=== PATIENT | male | born 1970 | race Caucasian/White ===

== ENCOUNTER 2017-10-05 08:19 | Emergency (ER) | payer SELFPAY | END 2017-10-05 08:55 | disposition home or self-care (01) | LOC: ERS 08:19 | DX: F10.10 Alcohol abuse, uncomplicated (principal); F32.9 Major depressive disorder, single episode, unspecified; F41.9 Anxiety disorder, unspecified; F17.210 Nicotine dependence, cigarettes, uncomplicated; Z79.899 Other long term (current) drug therapy | CPT/HCPCS: 99283 ==

== ENCOUNTER 2022-11-18 11:53 | Inpatient (IN) | payer SELFPAY ==
[2022-11-18] MEDS ORDERED: Ondansetron PF 4 MG/2 ML Vial ONE (13:45)
[2022-11-18] MEDS ORDERED: Morphine 4 MG/ML VIAL ONE ×2 (13:45→16:17)
[2022-11-18] MEDS ORDERED: CEFAZOLIN 1 GM VIAL ONE (15:47)
[2022-11-18 16:23] LABS: #Basophils 0.1 thou/uL (0.0-0.2); #Eosinphils 0.1 thou/uL (0.0-0.7); #Lymphocytes 2.8 thou/uL (1.20-3.40); #Monocytes 1.1 thou/uL (0.11-0.59); #Neutrophils 5.3 thou/uL (1.40-6.50); %Basophils 0.7 % (0.0-1.0); %Eosinophils 1.1 % (0.0-10.0); %Lymphocytes 29.8 % (21.0-51.0); %Monocytes 11.7 % (0.0-10.0); %Neutrophils 56.7 % (42.0-75.0); Hemoglobin 14.6 g/dL (14.0-18.0); Mean Corpuscular HGB CONC 35.6 g/dL (32.0-36.0); Mean Corpuscular Hemoglobin 36.7 pg (27.0-31.0); Mean Platelet Volume 7.8 fL (7.4-10.4); PTT 28.6 sec (22.9-36.1); Platelet Count 177 10x3/uL (130-400); Prothrombin Time 13.5 sec (12.0-14.7); RBC Distribution Width 11.9 % (11.5-14.5); Red Blood Cell (RBC) Count 3.97 mill/uL (4.70-6.10); White Blood Cell (WBC) Count 9.3 10x3/uL (4.8-10.8)
[2022-11-18 16:26] LABS: ALT (SGPT) 32 U/L (8-55); AST (SGOT) 37 U/L (5-34); Albumin 3.8 g/dL (3.5-5.0); Alcohol 42 mg/dL (Less than 10); Alkaline Phosphatase 71 U/L (40-110); Anion Gap 15 mmol/L (10-20); BUN (Urea Nitrogen) 6 mg/dL (8.9-20.6); Bilirubin, Total 0.8 mg/dL (0.2-1.2); Calc. Creatinine Clearance 0 mL/min (70-130); Calcium 8.7 mg/dL (7.8-10.44); Carbon Dioxide 21 mmol/L (22-29); Chloride 105 mmol/L (98-107); Estimated GFR 105; Glucose 79 mg/dL (70-105); Phosphorus 2.4 mg/dL (2.3-4.7); Potassium 3.4 mmol/L (3.5-5.1); Protein, Total 6.8 g/dL (6.0-8.3); Sodium 138 mmol/L (136-145)
[2022-11-18 16:29] LABS: Magnesium 1.6 mg/dL (1.6-2.6)
[2022-11-18] MEDS ORDERED: Dextrose 50% Abboject 50 ML SYRINGE SLOW IVP PRN (16:34)
[2022-11-18] MEDS ORDERED: TETANUS, DIPHTHERIA TOX,ADULT (TDVAX) 0.5 ML VIAL IM ONE (16:34)
[2022-11-18] MEDS ORDERED: hydrALAZINE 20 MG/ML VIAL SLOW IVP PRN (16:34)
[2022-11-18] MEDS ORDERED: Dextrose 5% in Water 1,000 ML IV PRN (16:34)
[2022-11-18] MEDS ORDERED: Ondansetron PF 4 MG/2 ML Vial IVP PRN (16:34)
[2022-11-18] MEDS ORDERED: Cyclobenzaprine 10 MG TAB PO PRN (16:40)
[2022-11-18] MEDS ORDERED: Acetaminophen/Codeine 30-300mg Tablet PO PRN (16:40)
[2022-11-18] MEDS ORDERED: Sodium Chloride 0.9% 1,000 ML IV SCH (16:45)
[2022-11-18] MEDS ORDERED: Magnesium 2 GM/50 ML(in water) 2 GM in Premix Bag 1 BAG IVPB SCH (18:45)
[2022-11-18] MEDS ORDERED: Potassium Phosphate 30 MMOL in Sodium Chloride 0.9% 250 ML 250 ML IVPB SCH (18:45)
[2022-11-18] MEDS: Senokot S 8.6-50 MG TAB PO SCH (20:53)
[2022-11-18] MEDS: Acetaminophen 500 MG TAB PO SCH (20:54)
[2022-11-18] MEDS: Morphine 4 MG/ML VIAL SLOW IVP PRN (20:54)
[2022-11-18] MEDS: Gabapentin 300 MG CAP PO SCH (20:55)
[2022-11-18] MEDS: Famotidine 20 MG TAB PO SCH (20:55)
[2022-11-18] MEDS: Oxazepam 10 MG CAP PO SCH (21:01)
[2022-11-18 23:48] VITALS: BMI 24.4
[2022-11-18 23:53] LABS: Amphetamine Not Detected (NotDetected); Barbiturates Screen Not Detected (NotDetected); Benzodiazepine Screen Detected (NotDetected); Cocaine Metabolite Screen Not Detected (NotDetected); Methadone Not Detected (NotDetected); Methamphetamine Not Detected (NotDetected); Opiate Screen Detected (NotDetected); Oxycodone Screen Not Detected (NotDetected); Phencyclidine (PCP) Not Detected (NotDetected); THC/Cannabinoid Screen Not Detected (NotDetected); Tricyclic Screen Not Detected (NotDetected)
[2022-11-19] MEDS: CEFAZOLIN 2 GM in Sodium Chloride 0.9% 100 ML IVPB SCH ×3 (00:44→20:50)
[2022-11-19] MEDS: Nicotine 14 MG PATCH TD SCH ×2 (00:44→22:28)
[2022-11-19] MEDS: Acetaminophen 500 MG TAB PO SCH ×4 (02:29→20:54)
[2022-11-19] MEDS: Morphine 4 MG/ML VIAL SLOW IVP PRN (02:29)
[2022-11-19] MEDS: Oxazepam 10 MG CAP PO SCH ×3 (05:20→22:28)
[2022-11-19 07:05] LABS: #Basophils 0.1 thou/uL (0.0-0.2); #Eosinphils 0.1 thou/uL (0.0-0.7); #Lymphocytes 2.3 thou/uL (1.20-3.40); #Neutrophils 4.6 thou/uL (1.40-6.50); %Basophils 0.7 % (0.0-1.0); %Eosinophils 1.6 % (0.0-10.0); %Lymphocytes 28.2 % (21.0-51.0); %Monocytes 12.3 % (0.0-10.0); %Neutrophils 57.2 % (42.0-75.0); Hemoglobin 13.4 g/dL (14.0-18.0); Mean Corpuscular HGB CONC 36.4 g/dL (32.0-36.0); Mean Corpuscular Hemoglobin 37.8 pg (27.0-31.0); Platelet Count 158 10x3/uL (130-400); RBC Distribution Width 11.7 % (11.5-14.5); Red Blood Cell (RBC) Count 3.54 mill/uL (4.70-6.10)
[2022-11-19] MEDS ORDERED: CEFAZOLIN 2 GM in Sodium Chloride 0.9% 100 ML IVPB SCH ×2 (07:15→16:00)
[2022-11-19 07:54] LABS: Anion Gap 14 mmol/L (10-20); BUN (Urea Nitrogen) 7 mg/dL (8.9-20.6); Calc. Creatinine Clearance 117 mL/min (70-130); Calcium 7.9 mg/dL (7.8-10.44); Carbon Dioxide 21 mmol/L (22-29); Chloride 105 mmol/L (98-107); Estimated GFR 106; Glucose 80 mg/dL (70-105); Magnesium 1.9 mg/dL (1.6-2.6); Phosphorus 3.7 mg/dL (2.3-4.7); Potassium 3.7 mmol/L (3.5-5.1); Sodium 136 mmol/L (136-145)
[2022-11-19] MEDS: Famotidine 20 MG TAB PO SCH ×2 (08:32→20:49)
[2022-11-19] MEDS: Senokot S 8.6-50 MG TAB PO SCH ×2 (08:32→20:49)
[2022-11-19] MEDS: Gabapentin 300 MG CAP PO SCH ×3 (08:33→20:49)
[2022-11-19] MEDS: Folic Acid 1 MG TAB PO SCH (08:33)
[2022-11-19] MEDS: Thiamine 100 MG TAB PO SCH (08:33)
[2022-11-19] MEDS: Multivitamin W/ Minerals 1 TAB PO SCH (08:33)
[2022-11-19] MEDS: Acetaminophen/Codeine 30-300mg Tablet PO PRN (08:37)
[2022-11-19] MEDS: Polyethylene Glycol 3350 17 GM Packet PO SCH (08:51)
[2022-11-19] MEDS ORDERED: FENTANYL 50 MCG/ML 1 ML VIAL ONE ×2 (10:48→11:58)
[2022-11-19] MEDS ORDERED: Bupivacaine PF 0.5% 30 ML VIAL ONE (10:48)
[2022-11-19] MEDS ORDERED: Midazolam HCl 2 mg/2 ml Vial ONE (10:48)
[2022-11-19] MEDS ORDERED: Ondansetron PF 4 MG/2 ML Vial ONE (12:23)
[2022-11-19] MEDS ORDERED: Lidocaine 1% PF 5 ML VIAL ONE (12:23)
[2022-11-19] MEDS ORDERED: Dexamethasone 20 MG/5 ML VIAL ONE (12:23)
[2022-11-19] MEDS ORDERED: Succinylcholine Chloride 100 MG/5 ML SYRINGE FS ONE (12:23)
[2022-11-19] MEDS ORDERED: Bupivacaine HCl 0.5%/Epinephrine 1:200,000/PF 30 ml Vial ONE (12:23)
[2022-11-19] MEDS ORDERED: PROPOFOL 200 MG/20 ML VIAL ONE (12:23)
[2022-11-19] MEDS ORDERED: Ondansetron HCl/PF 4 MG/2 ML Vial IVP PRN (14:06)
[2022-11-19] MEDS ORDERED: Promethazine HCl 25 MG/ML VIAL IM PRN (14:06)
[2022-11-19] MEDS ORDERED: Escitalopram Oxalate 10 mg Tablet PO SCH (20:00)
[2022-11-19] MEDS ORDERED: clonazePAM 1 MG TAB PO SCH (20:00)
[2022-11-19] MEDS ORDERED: traZODone HCl 50 MG TAB PO SCH (21:00)
[2022-11-20] MEDS: Acetaminophen 500 MG TAB PO SCH ×3 (02:25→14:01)
[2022-11-20] MEDS: Acetaminophen/Codeine 30-300mg Tablet PO PRN ×2 (04:22→12:27)
[2022-11-20] MEDS: CEFAZOLIN 2 GM in Sodium Chloride 0.9% 100 ML IVPB SCH (04:22)
[2022-11-20] MEDS: Oxazepam 10 MG CAP PO SCH ×2 (06:17→15:10)
[2022-11-20 08:12] VITALS: TEMP 97.4
[2022-11-20] MEDS: Senokot S 8.6-50 MG TAB PO SCH (08:14)
[2022-11-20] MEDS: Thiamine 100 MG TAB PO SCH (08:14)
[2022-11-20] MEDS: Gabapentin 300 MG CAP PO SCH ×2 (08:15→15:10)
[2022-11-20] MEDS: Folic Acid 1 MG TAB PO SCH (08:15)
[2022-11-20] MEDS: Polyethylene Glycol 3350 17 GM Packet PO SCH (08:25)
[2022-11-20] MEDS ORDERED: Escitalopram Oxalate 10 mg Tablet PO SCH ×2 (09:00)
[2022-11-20] MEDS ORDERED: clonazePAM 1 MG TAB PO SCH ×2 (09:00)
[2022-11-20 11:40] VITALS: BP 118/71
[2022-11-20] MEDS: Multivitamin W/ Minerals 1 TAB PO SCH (12:30)
[2022-11-20] MEDS: Famotidine 20 MG TAB PO SCH (12:30)
[2022-11-20] MEDS ORDERED: traZODone HCl 50 MG TAB PO SCH (21:00)
== END 2022-11-20 15:30 | disposition home or self-care (01) | DRG 494 ==
LOC: ERS 11:53 → SJJU 16:23
PROVIDERS: ADMIT Surgery; ATTEND Surgery
PROC: 0QSG04Z Reposition Right Tibia with Internal Fixation Device, Open Approach (ICD-10-PCS; principal; 2022-11-19)
DX: S82.871A Displaced pilon fracture of right tibia, initial encounter for closed fracture (principal); E87.6 Hypokalemia; F41.9 Anxiety disorder, unspecified; F32.A Depression, unspecified; F43.10 Post-traumatic stress disorder, unspecified; F17.210 Nicotine dependence, cigarettes, uncomplicated; F10.129 Alcohol abuse with intoxication, unspecified; S50.811A Abrasion of right forearm, initial encounter; W14.XXXA Fall from tree, initial encounter; Z98.890 Other specified postprocedural states; Z79.899 Other long term (current) drug therapy; Z91.041 Radiographic dye allergy status; Y93.H2 Activity, gardening and landscaping
CPT/HCPCS: 29405; 36415; 71045; 80048; 80053; 80306; 80307; 83735; 84100; 85025; 85610; 85730; 96374; 96375; 96376; C1713; C1889; J0690; J1100; J2250; J2270; J2405; J2704; J3010; J3475; J3490; J7050; S0020

== ENCOUNTER 2022-11-28 14:54 | Inpatient (IN) | payer SELFPAY ==
[2022-11-28 16:20] LABS: #Basophils 0.1 thou/uL (0.0-0.2); #Eosinphils 0.3 thou/uL (0.0-0.7); #Lymphocytes 2.7 thou/uL (1.20-3.40); #Monocytes 0.8 thou/uL (0.11-0.59); #Neutrophils 2.9 thou/uL (1.40-6.50); %Basophils 1.2 % (0.0-1.0); %Eosinophils 4.5 % (0.0-10.0); %Lymphocytes 39.8 % (21.0-51.0); %Monocytes 11.8 % (0.0-10.0); %Neutrophils 42.7 % (42.0-75.0); Hemoglobin 14.5 g/dL (14.0-18.0); Mean Corpuscular HGB CONC 35.9 g/dL (32.0-36.0); Mean Corpuscular Hemoglobin 37.2 pg (27.0-31.0); Mean Platelet Volume 6.5 fL (7.4-10.4); Platelet Count 330 10x3/uL (130-400); RBC Distribution Width 11.7 % (11.5-14.5); Red Blood Cell (RBC) Count 3.89 mill/uL (4.70-6.10); White Blood Cell (WBC) Count 6.8 10x3/uL (4.8-10.8)
[2022-11-28 16:36] LABS: Anion Gap 14 mmol/L (10-20); BUN (Urea Nitrogen) 10 mg/dL (8.9-20.6); Calc. Creatinine Clearance 0 mL/min (70-130); Calcium 8.9 mg/dL (7.8-10.44); Carbon Dioxide 22 mmol/L (22-29); Chloride 105 mmol/L (98-107); Estimated GFR 69; Glucose 79 mg/dL (70-105); Potassium 4.1 mmol/L (3.5-5.1); Sodium 137 mmol/L (136-145)
[2022-11-28] MEDS ORDERED: cefTRIAXone (ROCEPHIN) 2 GM VIAL ONE (17:05)
[2022-11-28] MEDS ORDERED: Morphine 4 MG/ML VIAL ONE (17:05)
[2022-11-28] MEDS ORDERED: Cyclobenzaprine 10 MG TAB PO PRN (17:06)
[2022-11-28] MEDS ORDERED: Ipratropium/Albuterol 3 ML NEB NEB PRN (17:06)
[2022-11-28] MEDS ORDERED: Ondansetron PF 4 MG/2 ML Vial IVP PRN (17:06)
[2022-11-28] MEDS ORDERED: Ibuprofen 800 MG TAB PO PRN (18:57)
[2022-11-28] MEDS ORDERED: traZODone HCl 50 MG TAB PO SCH (21:00)
[2022-11-28] MEDS: metroNIDAZOLE 500 MG in Premix Bag 1 BAG IVPB SCH (22:06)
[2022-11-28] MEDS: Famotidine/PF 20 mg/2ml Vial SLOW IVP SCH (22:07)
[2022-11-28] MEDS: Sodium Chloride 0.9% 1,000 ML IV SCH (22:07)
[2022-11-28] MEDS: Senokot S 8.6-50 MG TAB PO SCH (22:07)
[2022-11-28] MEDS: Oxazepam 10 MG CAP PO SCH (22:08)
[2022-11-28] MEDS: Cyclobenzaprine 10 MG TAB PO PRN (22:08)
[2022-11-28] MEDS: Gabapentin 300 MG CAP PO SCH (22:08)
[2022-11-28] MEDS: traMADol HCl 50 MG TAB PO PRN (22:09)
[2022-11-28 23:55] VITALS: BMI 26.4
[2022-11-29] MEDS: Sodium Chloride 0.9% 1,000 ML IV SCH (01:35)
[2022-11-29] MEDS: Oxazepam 10 MG CAP PO SCH ×2 (05:26→13:45)
[2022-11-29] MEDS: metroNIDAZOLE 500 MG in Premix Bag 1 BAG IVPB SCH (05:26)
[2022-11-29] MEDS: traMADol HCl 50 MG TAB PO PRN (05:28)
[2022-11-29 05:41] LABS: #Basophils 0.1 thou/uL (0.0-0.2); #Eosinphils 0.3 thou/uL (0.0-0.7); #Monocytes 0.9 thou/uL (0.11-0.59); #Neutrophils 3.3 thou/uL (1.40-6.50); %Basophils 0.8 % (0.0-1.0); %Eosinophils 4.9 % (0.0-10.0); %Lymphocytes 30.7 % (21.0-51.0); %Monocytes 13.2 % (0.0-10.0); %Neutrophils 50.4 % (42.0-75.0); Hemoglobin 13.1 g/dL (14.0-18.0); Mean Corpuscular HGB CONC 34.7 g/dL (32.0-36.0); Mean Corpuscular Hemoglobin 36.2 pg (27.0-31.0); Mean Platelet Volume 6.4 fL (7.4-10.4); Platelet Count 284 10x3/uL (130-400); RBC Distribution Width 11.7 % (11.5-14.5); Red Blood Cell (RBC) Count 3.62 mill/uL (4.70-6.10); White Blood Cell (WBC) Count 6.5 10x3/uL (4.8-10.8)
[2022-11-29 05:52] LABS: PTT 28.3 sec (22.9-36.1); Prothrombin Time 13.4 sec (12.0-14.7)
[2022-11-29 06:05] LABS: Phosphorus 3.4 mg/dL (2.3-4.7)
[2022-11-29 06:06] LABS: Anion Gap 10 mmol/L (10-20); BUN (Urea Nitrogen) 12 mg/dL (8.9-20.6); Calc. Creatinine Clearance 93 mL/min (70-130); Calcium 8.3 mg/dL (7.8-10.44); Carbon Dioxide 22 mmol/L (22-29); Chloride 110 mmol/L (98-107); Estimated GFR 77; Glucose 90 mg/dL (70-105); Magnesium 2.2 mg/dL (1.6-2.6); Potassium 4.4 mmol/L (3.5-5.1); Sodium 138 mmol/L (136-145)
[2022-11-29 08:05] VITALS: TEMP 97.5
[2022-11-29] MEDS ORDERED: Escitalopram Oxalate 10 mg Tablet PO SCH (09:00)
[2022-11-29] MEDS ORDERED: Thiamine 100 MG TAB PO SCH (09:00)
[2022-11-29] MEDS ORDERED: Saccharomyces boulardii 250 MG CAP PO SCH (09:00)
[2022-11-29] MEDS ORDERED: Folic Acid 1 MG TAB PO SCH (09:00)
[2022-11-29] MEDS ORDERED: Polyethylene Glycol 3350 17 GM Packet PO SCH (09:00)
[2022-11-29] MEDS: Cyclobenzaprine 10 MG TAB PO PRN (09:01)
[2022-11-29] MEDS: Gabapentin 300 MG CAP PO SCH ×2 (09:01→15:25)
[2022-11-29] MEDS: Famotidine/PF 20 mg/2ml Vial SLOW IVP SCH (09:02)
[2022-11-29] MEDS: Senokot S 8.6-50 MG TAB PO SCH (09:08)
[2022-11-29] MEDS ORDERED: Acetaminophen/Codeine 30-300mg Tablet PO SCH (10:00)
[2022-11-29] MEDS ORDERED: Cephalexin 250 MG CAP PO SCH (12:00)
[2022-11-29 15:26] VITALS: BP 142/82
[2022-11-29] MEDS ORDERED: cefTRIAXone\\ROCEPHIN 2 GM in Sodium Chloride 0.9% 100 ML IVPB SCH (17:00)
== END 2022-11-29 15:10 | disposition home or self-care (01) | DRG 948 ==
LOC: ERS 14:54 → SJJU 17:10
PROVIDERS: ADMIT Surgery; ATTEND Surgery
DX: G89.18 Other acute postprocedural pain (principal); F41.9 Anxiety disorder, unspecified; F32.A Depression, unspecified; F17.210 Nicotine dependence, cigarettes, uncomplicated; F10.10 Alcohol abuse, uncomplicated; F43.10 Post-traumatic stress disorder, unspecified; S82.301D Unspecified fracture of lower end of right tibia, subsequent encounter for closed fracture with routine healing; W14.XXXD Fall from tree, subsequent encounter
CPT/HCPCS: 36415; 80048; 83605; 83735; 84100; 85025; 85610; 85652; 85730; 86140; 86850; 86900; 86901; J0696; J2270; J7050; S0028

== ENCOUNTER 2023-04-16 14:49 | Inpatient (IN) | payer SELFPAY ==
[2023-04-16 16:05] LABS: #Eosinphils 0.1 thou/uL (0.0-0.7); #Monocytes 0.9 thou/uL (0.11-0.59); #Neutrophils 6.8 thou/uL (1.40-6.50); %Basophils 0.4 % (0.0-1.0); %Eosinophils 0.9 % (0.0-10.0); %Lymphocytes 25.4 % (21.0-51.0); %Monocytes 8.5 % (0.0-10.0); %Neutrophils 64.2 % (42.0-75.0); Hematocrit 47.8 % (42.0-52.0); Hemoglobin 17.8 g/dL (14.0-18.0); Mean Corpuscular HGB CONC 37.2 g/dL (32.0-36.0); Mean Corpuscular Hemoglobin 36.2 pg (27.0-31.0); Mean Corpuscular Volume 97.2 fl (78.0-98.0); Platelet Count 158 10x3/uL (130-400); RBC Distribution Width 12.9 % (11.5-14.5); Red Blood Cell (RBC) Count 4.92 mill/uL (4.70-6.10); White Blood Cell (WBC) Count 10.5 10x3/uL (4.8-10.8)
[2023-04-16 16:12] LABS: ALT (SGPT) 46 U/L (8-55); AST (SGOT) 77 U/L (5-34); Albumin 3.1 g/dL (3.5-5.0); Alkaline Phosphatase 146 U/L (40-110); Anion Gap 17 mmol/L (10-20); BUN (Urea Nitrogen) Less than 4 mg/dL (8.9-20.6); Bilirubin, Total 1.9 mg/dL (0.2-1.2); CK (CPK) 410 U/L (30-200); Calc. Creatinine Clearance 0 mL/min (70-130); Calcium 8.2 mg/dL (7.8-10.44); Carbon Dioxide 24 mmol/L (22-29); Chloride 97 mmol/L (98-107); Estimated GFR 108; Glucose 118 mg/dL (70-105); Lipase 47 U/L (8-78); Potassium 2.8 mmol/L (3.5-5.1); Protein, Total 6.1 g/dL (6.0-8.3); Sodium 135 mmol/L (136-145)
[2023-04-16] MEDS ORDERED: Ondansetron PF 4 MG/2 ML Vial ONE (18:29)
[2023-04-16] MEDS ORDERED: LORazepam 2 MG/ML SYR.(CARPUJECT) ONE ×2 (19:03→19:53)
[2023-04-16] MEDS ORDERED: Potassium Chloride 20 MEQ TAB ONE (19:04)
[2023-04-16] MEDS ORDERED: Magnesium 2 GM/50 ML BAG (IN WATER) ONE (19:04)
[2023-04-16] MEDS ORDERED: Thiamine HCl 200 MG/2 ML VIAL SLOW IVP SCH (19:15)
[2023-04-16 19:47] LABS: Magnesium 1.5 mg/dL (1.6-2.6)
[2023-04-16] MEDS ORDERED: Calcium Carbonate 500 MG ChewTAB PO PRN (20:38)
[2023-04-16] MEDS ORDERED: Senokot S 8.6-50 MG TAB PO PRN (20:38)
[2023-04-16] MEDS ORDERED: Lorazepam 2 MG/ML VIAL IM PRN (20:38)
[2023-04-16] MEDS ORDERED: Electrolyte Replacement Protocol 1 EACH FS SCH (20:45)
[2023-04-16] MEDS ORDERED: Lactated Ringer's 1,000 ML IV SCH (21:00)
[2023-04-16] MEDS: Famotidine/PF 20 mg/2ml Vial SLOW IVP SCH (22:07)
[2023-04-16] MEDS: Lorazepam 1 MG TAB PO SCH (22:08)
[2023-04-16] MEDS: Famotidine 20 MG TAB PO SCH (22:08)
[2023-04-16] MEDS: Ondansetron ODT 4 MG TAB PO PRN (22:08)
[2023-04-16] MEDS: Nicotine 14 MG PATCH TD SCH (22:19)
[2023-04-16 22:38] VITALS: BMI 24.3
[2023-04-17] MEDS: Lorazepam 1 MG TAB PO PRN ×2 (00:19→06:08)
[2023-04-17] MEDS: Lorazepam 1 MG TAB PO SCH ×4 (03:20→20:05)
[2023-04-17] MEDS: Ondansetron ODT 4 MG TAB PO PRN (05:27)
[2023-04-17 06:28] LABS: ALT (SGPT) 34 U/L (8-55); AST (SGOT) 60 U/L (5-34); Albumin 2.5 g/dL (3.5-5.0); Alkaline Phosphatase 114 U/L (40-110); Anion Gap 9 mmol/L (10-20); BUN (Urea Nitrogen) 5 mg/dL (8.9-20.6); Bilirubin, Total 2.7 mg/dL (0.2-1.2); Calc. Creatinine Clearance 116 mL/min (70-130); Calcium 7.7 mg/dL (7.8-10.44); Carbon Dioxide 29 mmol/L (22-29); Chloride 103 mmol/L (98-107); Estimated GFR 106; Globulin 2.1 g/dL (2.4-3.5); Glucose 85 mg/dL (70-105); Potassium 3.4 mmol/L (3.5-5.1); Protein, Total 4.6 g/dL (6.0-8.3); Sodium 138 mmol/L (136-145)
[2023-04-17 07:38] LABS: Amphetamine Not Detected (NotDetected); Barbiturates Screen Not Detected (NotDetected); Benzodiazepine Screen Detected (NotDetected); Cocaine Metabolite Screen Not Detected (NotDetected); Methadone Not Detected (NotDetected); Methamphetamine Not Detected (NotDetected); Opiate Screen Not Detected (NotDetected); Oxycodone Screen Not Detected (NotDetected); Phencyclidine (PCP) Not Detected (NotDetected); THC/Cannabinoid Screen Not Detected (NotDetected); Tricyclic Screen Not Detected (NotDetected)
[2023-04-17] MEDS ORDERED: Potassium Chloride 20 MEQ TAB PO SCH (08:00)
[2023-04-17] MEDS: Famotidine 20 MG TAB PO SCH ×2 (08:01→20:05)
[2023-04-17] MEDS: Multivit, Therapeutic 1 TAB PO SCH (08:01)
[2023-04-17] MEDS: Folic Acid 1 MG TAB PO SCH (08:02)
[2023-04-17] MEDS: Famotidine/PF 20 mg/2ml Vial SLOW IVP SCH ×2 (08:02→20:04)
[2023-04-17 08:57] LABS: Magnesium 1.9 mg/dL (1.6-2.6)
[2023-04-17] MEDS: Escitalopram Oxalate 10 mg Tablet PO SCH (09:43)
[2023-04-17] MEDS ORDERED: Magnesium 2 GM/50 ML(in water) 2 GM in Premix Bag 1 BAG IVPB SCH (10:00)
[2023-04-17] MEDS: Nicotine 14 MG PATCH TD SCH (20:04)
[2023-04-17] MEDS: traZODone HCl 50 MG TAB PO SCH (20:05)
[2023-04-17] MEDS ORDERED: Lorazepam 1 MG TAB PO PRN (20:38)
[2023-04-17] MEDS ORDERED: Non-Formulary Item 1 EACH (Trazodone Hcl [Trazodone Hcl] 100 MG Tablet) PO SCH (21:00)
[2023-04-17 21:59] LABS: Bilirubin Negative (Negative); Blood, Urine Negative (Negative); CAUTI Indications for Culture Dysuria,urgency,freq; Clarity Turbid (Clear); Glucose, Urine (Dipstick) Normal (Negative); Ketone, Urine Negative (Negative); Leukocyte Negative Leu/uL (Negative); Mucous/LPF Rare LPF (<2+); Nitrite Negative (Negative); Protein, Urine (Dipstick) Negative (Neg-Trace); RBC/HPF None Seen HPF (0-3); Specific Gravity, Urine 1.008 (1.002-1.036); Squamous Epithelial None Seen HPF (0-3); Urobilinogen 6 mg/dL (Less than 2); WBC/HPF 0-3 HPF (0-3); pH, Urine 7.5 (5.0-9.0)
[2023-04-17 22:09] LABS: Bacteria/HPF Rare-Few HPF (None Seen)
[2023-04-17 22:11] LABS: Urine Culture Reflex No No
[2023-04-18] MEDS: Ondansetron ODT 4 MG TAB PO PRN ×2 (02:43→08:55)
[2023-04-18] MEDS: Lorazepam 1 MG TAB PO SCH ×3 (02:44→15:30)
[2023-04-18] MEDS: Acetaminophen 325 MG TAB PO PRN (02:48)
[2023-04-18] MEDS: Folic Acid 1 MG TAB PO SCH (08:55)
[2023-04-18] MEDS: Famotidine/PF 20 mg/2ml Vial SLOW IVP SCH ×2 (08:55→21:03)
[2023-04-18] MEDS: Multivit, Therapeutic 1 TAB PO SCH (08:55)
[2023-04-18] MEDS: Escitalopram Oxalate 10 mg Tablet PO SCH (08:55)
[2023-04-18] MEDS: Famotidine 20 MG TAB PO SCH ×2 (08:55→21:01)
[2023-04-18] MEDS ORDERED: Lorazepam 1 MG TAB PO PRN (20:38)
[2023-04-18] MEDS: traZODone HCl 50 MG TAB PO SCH (21:01)
[2023-04-18] MEDS: Nicotine 14 MG PATCH TD SCH (21:01)
[2023-04-19 07:14] LABS: Anion Gap 14 mmol/L (10-20); BUN (Urea Nitrogen) 6 mg/dL (8.9-20.6); Calc. Creatinine Clearance 111 mL/min (70-130); Calcium 7.5 mg/dL (7.8-10.44); Carbon Dioxide 21 mmol/L (22-29); Chloride 106 mmol/L (98-107); Estimated GFR 104; Glucose 103 mg/dL (70-105); Magnesium 2.1 mg/dL (1.6-2.6); Potassium 2.8 mmol/L (3.5-5.1); Sodium 138 mmol/L (136-145)
[2023-04-19] MEDS: Escitalopram Oxalate 10 mg Tablet PO SCH (09:07)
[2023-04-19] MEDS: Folic Acid 1 MG TAB PO SCH (09:07)
[2023-04-19] MEDS: Potassium Chloride 20 MEQ TAB PO SCH ×3 (09:07→18:39)
[2023-04-19] MEDS: Multivit, Therapeutic 1 TAB PO SCH (09:07)
[2023-04-19] MEDS: Famotidine 20 MG TAB PO SCH ×2 (09:08→21:00)
[2023-04-19] MEDS: Famotidine/PF 20 mg/2ml Vial SLOW IVP SCH ×2 (09:09→21:00)
[2023-04-19] MEDS: Acetaminophen 325 MG TAB PO PRN (18:42)
[2023-04-19] MEDS ORDERED: Lorazepam 0.5 MG TAB PO PRN (20:38)
[2023-04-19] MEDS: Nicotine 14 MG PATCH TD SCH (21:00)
[2023-04-19] MEDS: traZODone HCl 50 MG TAB PO SCH (21:00)
[2023-04-19] MEDS ORDERED: Thiamine 100 MG TAB PO SCH (21:00)
[2023-04-20 08:13] VITALS: BP 116/75; TEMP 98.6
[2023-04-20] MEDS: Potassium Chloride 20 MEQ TAB PO SCH (08:20)
[2023-04-20] MEDS: Multivit, Therapeutic 1 TAB PO SCH (08:21)
[2023-04-20] MEDS: Folic Acid 1 MG TAB PO SCH (08:21)
[2023-04-20] MEDS: Escitalopram Oxalate 10 mg Tablet PO SCH (08:21)
[2023-04-20] MEDS: Famotidine 20 MG TAB PO SCH (08:22)
[2023-04-20] MEDS: Famotidine/PF 20 mg/2ml Vial SLOW IVP SCH (08:22)
[2023-04-20 12:59] LABS: Potassium 4.9 mmol/L (3.5-5.1)
== END 2023-04-20 15:04 | disposition home or self-care (01) | DRG 897 ==
LOC: ERS 14:49 → 2NO 20:41 → T4-B 04-18 20:59
PROVIDERS: ADMIT Student in an Organized Health Care Education/Training Program; ATTEND Internal Medicine Critical Care Medicine
DX: F10.239 Alcohol dependence with withdrawal, unspecified (principal); M62.82 Rhabdomyolysis; E87.6 Hypokalemia; E83.42 Hypomagnesemia; F17.210 Nicotine dependence, cigarettes, uncomplicated; E86.0 Dehydration; M54.50 Low back pain, unspecified; K70.10 Alcoholic hepatitis without ascites; I10 Essential (primary) hypertension; Z79.899 Other long term (current) drug therapy; Z98.890 Other specified postprocedural states; Z91.041 Radiographic dye allergy status; Z91.013 Allergy to seafood
CPT/HCPCS: 36415; 71046; 80048; 80053; 80306; 80307; 81001; 82550; 83690; 83735; 84132; 85025; 93005; 96361; 96365; 96375; 96376; J2060; J2405; J3411; J3475; J7120; Q0162; S0028